=== PATIENT | female | born 1965 | race Caucasian/White ===

== ENCOUNTER 2018-11-28 08:53 | Day surgery (SDC) | payer MEDICARE ==
[2018-11-28] MEDS ORDERED: Propofol 10 mg/ml Inj (20 ML) ONE (10:07)
[2018-11-28] MEDS ORDERED: Midazolam 2 MG/2 ML VIAL ONE (10:07)
[2018-11-28] MEDS ORDERED: Lidocaine 1% Inj (20ml) ONE (10:08)
[2018-11-28] MEDS ORDERED: HYDROmorphone 0.5 mg/0.5 ml ISec ONE (11:24)
[2018-11-28 12:07] VITALS: BP 97/59; PULSE 61
[2018-11-28 12:26] VITALS: RESP 18; TEMP 97.4; O2SAT 97
--- NOTE | 2018-11-28 13:35 | OP ---
PROCEDURE DATE: 11/28/2018 PREOPERATIVE DIAGNOSIS: Postmenopausal bleeding. POSTOPERATIVE DIAGNOSIS: Postmenopausal bleeding. PROCEDURE: Examination under anesthesia, dilatation and curettage. SURGEON: Morgan Briones III, MD ANESTHESIA: General. ANESTHESIOLOGIST: Alexandre Alejandro DO FLUIDS: IV crystalloid, IV prophylactic antibiotics. DRAINS: None. ESTIMATED BLOOD LOSS: Minimal. CONDITION: Stable. CLINICAL FINDINGS: This is a 53-year-old female with a preoperative diagnosis as described above who after discussion of the risks, benefits and expected outcomes of all treatment alternatives, elected for the surgery described above and signed written informed consent. DESCRIPTION OF PROCEDURE: The patient was brought to the OR, placed under an adequate level of general anesthesia, then prepped and draped in usual sterile fashion for vaginal surgery. The legs placed and properly positioned in [employer]on universal stirrup. The bladder was drained to straight catheter. Examination under anesthesia was performed and a weighted speculum placed into the vagina. The cervix was placed on traction with tenaculum, endocervical curettings were taken followed by endometrial curettings. A moderate amount of benign-appearing tissue was obtained. The tenaculum was removed. No bleeding was noted from the tenaculum site. No bleeding was noted from the cervical os and this concluded the surgical procedure. The patient tolerated procedure well and brought to recovery in stable condition. Further treatment, if necessary, will depend upon the final pathologic results. Morgan Briones III, MD MTDD
== END 2018-11-28 13:02 | disposition home or self-care (01) ==
LOC: SDS 08:53
PROVIDERS: ATTEND Obstetrics & Gynecology Gynecology
DX: N95.0 Postmenopausal bleeding (principal)
CPT/HCPCS: 58558; 84703; 88305; J1170; J2250; J2405; J2704; J3010; J7030; J7120

== ENCOUNTER 2019-04-20 08:53 | Outpatient (CLI) | payer MEDICARE | END 2019-04-20 08:54 | disposition home or self-care (01) | LOC: RAD 08:53 ==